=== PATIENT | female | born 1955 ===

== ENCOUNTER 2024-08-28 06:19 | Day surgery (SDC) | payer OTHER ==
[2024-08-23 12:08] VITALS: BP 121/77
[2024-08-23 12:23] LABS: BASO % 0.7 % (0.1-1.2); EOS # 0.17 (0.04-0.54); EOS % 3.8 % (0.7-7.0); HEMATOCRIT 35.8 % (34.1-44.9); HEMOGLOBIN 11.8 g/dL (11.2-15.7); LYMPH # 1.59 (1.18-3.74); LYMPH % 35.3 % (19.3-53.1); MEAN CORPUSCULAR HEMOGLOBIN 30.1 pg (25.6-32.2); MONO # 0.45 (0.24-0.82); NEUT # 2.26 (1.56-6.13); PLATELET COUNT 212 K/uL (163-369); RED BLOOD COUNT 3.92 M/uL (3.93-5.22); RED CELL DISTRIBUTION WIDTH 13.3 % (11.6-14.4)
[2024-08-23 12:27] LABS: URINE RBC 6.7 uL (0.0-20.8); URINE WBC 19.3 uL (0.0-23.2)
[2024-08-23 12:30] LABS: URINE CAST 0.14 uL (0.0-1.40)
[2024-08-23 12:32] LABS: PARTIAL THROMBOPLASTIN TIME 25.6 SECONDS (22.0-34.0); PH,URINE 6.5; PROTHROMBIN TIME 10.9 SECONDS (9.0-11.5); URINE BILIRRUBIN NEGATIVE (NEGATIVE); URINE BLOOD NEGATIVE; URINE GLUCOSE NEGATIVE (NEGATIVE); URINE KETONE NEGATIVE (NEGATIVE); URINE LEUKOCYTE TRACE; URINE NITRATE NEGATIVE; URINE PROTEIN NEGATIVE (NEGATIVE); URINE UROBILINOGEN 0.2 E.U./dl
[2024-08-23 12:35] LABS: URINE APPEARANCE CLEAR; URINE COLOR YELLOW
[2024-08-23 13:12] LABS: BILIRUBIN TOTAL 0.66 mg/dL (0.3-1.2); CREATININE SERUM 0.69 mg/dL (0.55-1.02); GFR 84.86; GLOBULINA 3.5 G/DL (2.4-3.5); POTASSIUM 4.53 mEq/L (3.5-5.1); TOTAL PROTEIN 7.5 gm/dL (6.4-8.2)
[~2024-08-28] VITALS: Ht 162.6 cm; Wt 53.5 kg
[~2024-08-28 06:19] MED LIST: ATORVASTATIN CA10 MG PO; SYNTHROID50 MCG PO
[2024-08-28] MEDS ORDERED: CEFAZOLIN SODIUM 1,000 MG VIAL ONE (08:02)
[2024-08-28] MEDS ORDERED: SUGAMMADEX SODIUM 200 MG/2 ML VIAL IV ONE (11:46)
[2024-08-28] MEDS ORDERED: MORPHINE SULFATE 4 MG/ML VIAL IV ONE (12:35)
[2024-08-28] MEDS ORDERED: ONDANSETRON HCL 2 MG/ML VIAL ONE (12:45)
[2024-08-28] MEDS ORDERED: ONDANSETRON HCL 2 MG/ML VIAL IV ONE (12:50)
== END 2024-08-28 15:20 | disposition home or self-care (01) ==
LOC: CIR.AMB 06:19
PROVIDERS: ATTEND Surgery
DX: K81.1 Chronic cholecystitis (principal); Z88.5 Allergy status to narcotic agent